=== PATIENT | male | born 1990 ===

== ENCOUNTER 2017-03-31 19:42 | Emergency (ER) | payer MEDICAID ==
[2017-03-31 20:01] VITALS: BP 125/77; PULSE 65; RESP 16; TEMP 98.1; O2SAT 99
--- NOTE | 2017-03-31 20:10 | ED PDOC ---
HPI: CCC, URI, Sore Throat Time Seen by Provider: 03/31/17 20:08 Chief Complaint (Nursing): ENT Problem Chief Complaint (Provider): itching History Per: Patient History/Exam Limitations: no limitations Additional Complaint(s): 26yo M in ed for eval of thoart itching, ear pain, body aches, nose itching x1day. no fever no cough no rash no sick contacts. Past Medical History Reviewed: Historical Data, Nursing Documentation, Vital Signs Vital Signs: Last Vital Signs Temp 98.1 F 03/31/17 19:59 Pulse 65 03/31/17 19:59 Resp 16 03/31/17 19:59 BP 125/77 03/31/17 19:59 Pulse Ox 99 03/31/17 19:59 - Medical History PMH: No Chronic Diseases - Family History Family History: States: Unknown Family Hx - Home Medications Home Medications: Ambulatory Orders Medication Instructions Recorded Guaifen/Phenyleph/Acetaminophn 1 tab PO BID #14 tab 07/09/16 [Mucinex Fast-Max Cold & Sinus 325 mg-200 mg-5] Ibuprofen [Motrin Tab] 800 mg PO Q6H PRN #20 tab 07/09/16 Fexofenadine/Pseudoephedrine 1 each PO DAILY #12 tab.er.24h 03/31/17 [Sanjiv-D 24 Hour Tablet] Mometasone Furoate [Nasonex] 1 - 2 spray NS BID #1 spray.pump 03/31/17 - Allergies Allergies/Adverse Reactions: Allergies Allergy/AdvReac Type Severity Reaction Status Date / Time No Known Allergies Allergy Verified 06/25/16 19:01 Review of Systems ROS Statement: Except As Marked, All Systems Reviewed And Found Negative Constitutional: Negative for: Fever, Chills Physical Exam - Reviewed Nursing Documentation Reviewed: Yes Vital Signs Reviewed: Yes - Physical Exam Appears: Positive for: Well, Non-toxic, No Acute Distress Head Exam: Positive for: ATRAUMATIC, NORMAL INSPECTION, NORMOCEPHALIC Skin: Positive for: Normal Color, Warm, DRY Eye Exam: Positive for: EOMI, Normal appearance, PERRL ENT: Positive for: TM Is/Are (nad), Pharyngeal Erythema, Tonsillar Swelling. Negative for: Tonsillar Exudate Neck: Positive for: Normal, Painless ROM Cardiovascular/Chest: Positive for: Regular Rate, Rhythm Respiratory: Positive for: CNT, Normal Breath Sounds Neurologic/Psych: Positive for: Alert, Oriented - ECG O2 Sat by Pulse Oximetry: 99 Medical Decision Making Medical Decision Making: STREP IS NEGATIVE. [PT MOST LIKELY WITH VIRAL ILLNESS GIVEN NASONEX AND SANJIV ADVISED TO F.U WITH PMD. Disposition - Clinical Impression Clinical Impression: Rhinitis - Patient ED Disposition Is Patient to be Admitted: No Counseled Patient/Family Regarding: Studies Performed, Diagnosis, Need For Followup, Rx Given - Disposition Disposition: Routine/Home Disposition Time: 20:47 Condition: STABLE Prescriptions: Fexofenadine/Pseudoephedrine [Sanjiv-D 24 Hour Tablet] 1 each PO DAILY #12 tab.er.24h Mometasone Furoate [Nasonex] 1 - 2 spray NS BID #1 spray.pump Instructions: Allergic Rhinitis (ED)
== END 2017-03-31 21:02 | disposition home or self-care (01) ==
LOC: H.ER 19:42
DX: J30.9 Allergic rhinitis, unspecified (principal); H92.09 Otalgia, unspecified ear

== ENCOUNTER 2017-07-29 21:45 | Emergency (ER) | payer MEDICAID ==
[2017-07-29 21:56] VITALS: BP 127/84; PULSE 85; RESP 16; TEMP 98.4; O2SAT 98
[2017-07-29] MEDS ORDERED: Sodium Chloride 0.9% 1,000 ML IV STA (22:27)
[2017-07-29 23:02] LABS: BASO % 0.3 % (0.0-2.0); EOS # 0.2 K/uL (0.0-0.7); HEMOGLOBIN 15.7 g/dL (12.0-18.0); LYMPH # 1.5 K/uL (1.0-4.3); LYMPH % 14.1 % (20.0-40.0); MEAN CELL VOLUME 84.8 fl (80.0-94.0); MEAN CORPUSCULAR HEMOGLOBIN 29.2 pg (27.0-31.0); MEAN CORPUSCULAR HGB CONC 34.4 g/dL (33.0-37.0); MEAN PLATELET VOLUME 8.3 fl (7.2-11.7); MONO # 0.8 K/uL (0.0-0.8); MONO % 7.5 % (0.0-10.0); NEUT # 7.8 K/uL (1.8-7.0); NEUT % 76.1 % (50.0-75.0); NRBC % 0.1 % (0.0-0.0); RBC 5.39 Mil/uL (4.40-5.90); RED CELL DISTRIBUTION WIDTH 12.5 % (11.5-14.5); WHITE BLOOD COUNT 10.3 K/uL (4.8-10.8)
--- NOTE | 2017-07-29 23:02 | ED PDOC ---
HPI: General Adult Time Seen by Provider: 07/29/17 22:12 Chief Complaint (Nursing): Flu-like Symptoms History Per: Patient Additional Complaint(s): Pt. states today he developed bodyaches, fever, nausea (no vomiting), and multiple episodes of non-bloody watery diarrhea. Reports symptoms are associated with R sided abdominal pain greatest in the RUQ. Currently abdominal pain is diffuse. Denies cough, congestion, melena, hematochezia, BRBPR, sick contacts, recent travel, SOB. Also c/o R earache x 1 day. Denies hearing changes, headache, sore throat. Past Medical History Reviewed: Historical Data, Nursing Documentation, Vital Signs Vital Signs: Last Vital Signs Temp 98.4 F 07/29/17 21:51 Pulse 85 07/29/17 21:51 Resp 16 07/29/17 21:51 BP 127/84 07/29/17 21:51 Pulse Ox 98 07/29/17 23:49 - Surgical History Surgical History: No Surg Hx - Family History Family History: States: No Known Family Hx - Home Medications Home Medications: Ambulatory Orders Medication Instructions Recorded Guaifen/Phenyleph/Acetaminophn 1 tab PO BID #14 tab 07/09/16 [Mucinex Fast-Max Cold & Sinus 325 mg-200 mg-5] Ibuprofen [Motrin Tab] 800 mg PO Q6H PRN #20 tab 07/09/16 Fexofenadine/Pseudoephedrine 1 each PO DAILY #12 tab.er.24h 03/31/17 [Selina-D 24 Hour Tablet] Mometasone Furoate [Nasonex] 1 - 2 spray NS BID #1 spray.pump 03/31/17 Dicyclomine [Bentyl] 20 mg PO Q8 PRN #20 tab 07/29/17 Famotidine [Pepcid] 20 mg PO DAILY PRN #30 tab 07/29/17 Neomycin/Polymyxin/Hydrocortis 4 drop AD TID #1 bottle 07/29/17 [Cortisporin Otic Susp] Ondansetron ODT [Zofran ODT] 4 mg PO TID #20 odt 07/29/17 - Allergies Allergies/Adverse Reactions: Allergies Allergy/AdvReac Type Severity Reaction Status Date / Time No Known Allergies Allergy Verified 06/25/16 19:01 Review of Systems ROS Statement: Except As Marked, All Systems Reviewed And Found Negative Constitutional: Positive for: Fever, Malaise ENT: Positive for: Ear Pain Gastrointestinal: Positive for: Nausea, Abdominal Pain, Diarrhea Physical Exam - Physical Exam Appears: Positive for: Well, Non-toxic, No Acute Distress Head Exam: Positive for: ATRAUMATIC, NORMAL INSPECTION, NORMOCEPHALIC Skin: Positive for: Normal Color, Warm. Negative for: Rash Eye Exam: Positive for: Normal appearance. Negative for: Scleral icterus (b/l) ENT: Positive for: TM Is/Are (non-erythematous, non-bulging b/l), Other (R ear canal is erythemathous slightly edematous but without exudates). Negative for: Pharyngeal Erythema, Tonsillar Exudate, Tonsillar Swelling Neck: Positive for: Normal, Painless ROM Cardiovascular/Chest: Positive for: Regular Rate, Rhythm Respiratory: Positive for: CNT, Normal Breath Sounds Gastrointestinal/Abdominal: Positive for: Normal Exam, Soft. Negative for: Tenderness Back: Positive for: Normal Inspection. Negative for: L CVA Tenderness, R CVA Tenderness Extremity: Positive for: Normal ROM Neurologic/Psych: Positive for: Alert, Oriented. Negative for: Aphasia, Facial Droop - Laboratory Results Result Diagrams: 07/29/17 22:58 07/29/17 22:58 - ECG O2 Sat by Pulse Oximetry: 98 - Progress ED Course And Treament: Labs ordered. Pepcid 20mg IV, bentyl 20mg PO, IV NS bolus x 1 ordered. Abd US ordered. Re-evaluation Time: 23:47 Condition: Re-examined, Improved Disposition - Clinical Impression Clinical Impression: Gastroenteritis, Otitis externa - Patient ED Disposition Is Patient to be Admitted: No - Disposition Referrals: [facility] [Outside] Disposition: Routine/Home Disposition Time: 23:47 Condition: IMPROVED Prescriptions: Dicyclomine [Bentyl] 20 mg PO Q8 PRN #20 tab PRN Reason: abdominal pain Famotidine [Pepcid] 20 mg PO DAILY PRN #30 tab PRN Reason: Dyspepsia Neomycin/Polymyxin/Hydrocortis [Cortisporin Otic Susp] 4 drop AD TID #1 bottle Ondansetron ODT [Zofran ODT] 4 mg PO TID #20 odt Instructions: Gastroenteritis (ED) Forms: [email or web address] ([place]), [facility] ED School/Work Excuse Print Language: PERUVIAN
[2017-07-29 23:16] LABS: ALB/GLOB RATIO 1.3 (1.0-2.1); ALBUMIN 4.4 g/dL (3.5-5.0); ALT/SGPT 51 U/L (21-72); AST/SGOT 25 U/L (17-59); BLOOD UREA NITROGEN 13 mg/dl (9-20); CALCIUM 9.1 mg/dL (8.4-10.2); GFR AFRICAN-AMERICAN > 60; GFR NON-AFRICAN AMERICAN > 60; LIPASE 51 U/L (23-300)
--- NOTE | 2017-07-29 23:29 | US ---
EXAM: US Abdomen Complete CLINICAL HISTORY: 27 years old, male; Pain; Abdominal pain; Generalized; Additional info: Ruq abdominal pain TECHNIQUE: Real-time ultrasound of the abdomen (complete) with image documentation. COMPARISON: No relevant prior studies available. FINDINGS: Liver: Normal echogenicity. No mass. No intrahepatic bile duct dilatation. Gallbladder: No gallstones. No wall thickening. No pericholecystic fluid. No sonographic Riggs's sign. Common bile duct: No dilatation. No stones. Pancreas: Unremarkable as visualized. Kidneys: Normal echogenicity. No hydronephrosis. Spleen: No splenomegaly. Aorta: Unremarkable. No aneurysm. Inferior vena cava: Unremarkable. Free fluid: No significant free fluid. IMPRESSION: 1.No acute findings.
== END 2017-07-29 23:51 | disposition home or self-care (01) ==
LOC: H.ER 21:45
DX: K52.9 Noninfective gastroenteritis and colitis, unspecified (principal); H60.90 Unspecified otitis externa, unspecified ear
CPT/HCPCS: 76700; 80053; 83690; 85025; 87040; 87804; 96374; 96375; 99283; J2405; J7040